=== PATIENT | male | born 1980 | race Caucasian/White ===

== ENCOUNTER 2022-02-12 07:17 | Emergency (ER) | payer BC ==
[~2022-02-12 07:17] MED LIST: COLACE SOL100 MG/10 EARBOTH; FLOMAX0.4 MG PO; PERCOCET 7.5-31 EACH PO
[2022-02-12 08:12] LABS: HEMOGLOBIN 14.2 gm/dl (14.0-17.5); RED BLOOD COUNT 4.69 M/UL (4.20-5.50); WHITE BLOOD COUNT 4.5 K/UL (4.5-11.0)
[2022-02-12 08:31] LABS: BUN/CREATININE RATIO 6 (0-10)
[2022-02-12] MEDS ORDERED: VIBRAMYCIN100 MG PO (12:12)
== END 2022-02-12 12:26 | disposition home or self-care (01) ==
LOC: ER1 07:17
PROVIDERS: Physician Assistant
DX: J18.9 Pneumonia, unspecified organism (principal); Z20.822 Contact with and (suspected) exposure to COVID-19
CPT/HCPCS: 71045; 80053; 82550; 82553; 84484; 85025; 93005; 99285; U0002

== ENCOUNTER 2022-04-20 03:41 | Emergency (ER) | payer BC ==
[~2022-04-20 03:41] MED LIST changes: +VIBRAMYCIN100 MG PO
[2022-04-20 04:37] LABS: HEMOGLOBIN 14.8 gm/dl (14.0-17.5); RED BLOOD COUNT 4.79 M/UL (4.20-5.50); WHITE BLOOD COUNT 16.8 K/UL (4.5-11.0)
[2022-04-20 04:58] LABS: BUN/CREATININE RATIO 13 (0-10)
[2022-04-20] MEDS ORDERED: ZOFRAN ODT 4 MG4 MG SL (07:35)
[2022-04-20] MEDS ORDERED: HYDROCODON-ACE1 EAC4 PO (07:35)
[2022-04-20] MEDS ORDERED: FLOMAX 0.4 MG0.4 MG PO (07:35)
== END 2022-04-20 07:42 | disposition home or self-care (01) ==
LOC: ER1 03:41
PROVIDERS: Family Medicine
DX: N13.2 Hydronephrosis with renal and ureteral calculous obstruction (principal); E78.5 Hyperlipidemia, unspecified
CPT/HCPCS: 80053; 81001; 83690; 85025; 96374; 96375; 99284; J1885; J2270; J2405